=== PATIENT | female | born 1990 | race Caucasian/White ===

== ENCOUNTER → 2019-10-13 | Outpatient (CLI) | payer OTHER | LOC: ULTRA 10:31 | DX: N83.8 Other noninflammatory disorders of ovary, fallopian tube and broad ligament (principal) ==

== ENCOUNTER → 2019-12-14 | Outpatient (CLI) | payer OTHER | LOC: ULTRA 11:48 | PROVIDERS: ATTEND Nurse Practitioner | DX: R10.11 Right upper quadrant pain (principal); R10.84 Generalized abdominal pain ==

== ENCOUNTER → 2020-02-18 | Outpatient (CLI) | payer OTHER | LOC: ULTRA 11:05 | PROVIDERS: ATTEND Nurse Practitioner | DX: Z34.90 Encounter for supervision of normal pregnancy, unspecified, unspecified trimester (principal); Z3A.00 Weeks of gestation of pregnancy not specified ==

== ENCOUNTER → 2020-03-06 | Outpatient (CLI) | payer OTHER | LOC: ULTRA 09:01 | PROVIDERS: ATTEND Nurse Practitioner | DX: Z34.91 Encounter for supervision of normal pregnancy, unspecified, first trimester (principal); Z3A.01 Less than 8 weeks gestation of pregnancy ==